=== PATIENT | female | born 1985 | race Caucasian/White ===

== ENCOUNTER 2020-08-04 19:18 | Emergency (ER) | payer BC, OTHER ==
[2020-08-04 22:29] LABS: HEMOGLOBIN 13.1 gm/dl (12.3-15.3); RED BLOOD COUNT 4.91 M/UL (4.00-5.10); WHITE BLOOD COUNT 6.3 K/UL (4.5-11.0)
[2020-08-04 22:55] LABS: BUN/CREATININE RATIO 9 (0-10)
[2020-08-05] MEDS ORDERED: ZOFRAN ODT 4 MG4 MG PO (01:02)
== END 2020-08-05 01:14 | disposition home or self-care (01) ==
LOC: ER1 19:18
PROVIDERS: Nurse Practitioner
DX: U07.1 COVID-19 (principal); M54.9 Dorsalgia, unspecified; G89.29 Other chronic pain; Z79.891 Long term (current) use of opiate analgesic; Z88.8 Allergy status to other drugs, medicaments and biological substances
CPT/HCPCS: 36415; 71045; 80053; 82550; 82553; 83605; 83690; 83874; 84484; 84703; 85025; 85379; 87040; 93005; 96374; 99284; J2405